=== PATIENT | male | born 1995 ===

== ENCOUNTER 2022-10-05 13:56 | Emergency (ER) | payer SELFPAY ==
[~2022-10-05] VITALS: Ht 154.9 cm; Wt 65.3 kg
--- NOTE | 2022-10-05 14:03 | NUR ---
Placed in room 05 . Placed on extruder operator vertical, blood pressure machine and pulse oximeter. To gown for exam. Side rails up. Report given to Kaiden TONY
[2022-10-05 14:09] VITALS: BP_SYST 150
--- NOTE | 2022-10-05 14:10 | NUR ---
PT POSSIBLY HAD A PSEUDO-SEIZURE PER DR. DYER. NON-POST ICTAL. PT ABLE TO ANSWER QUESTION FULLY W/ RELATIVELY CLEAR SPEECH. ALTHOUGH SPEECH HAS BEEN SOMEWHAT SLURRED THROUGH SHORT ED COURSE. PT DENIES ELICIT SUBSTANCE USE AND OR ABUSE. PT NOTED TO HAVE MULTIPLE BAGS. DECLINES TO STATES IF HE IS HOMELESS AT THIS TIME. PT APPEARS DISHEVELED AND DIRTY. COMFORT MEASURES AND SUPPORTIVE CARE INITIATEDD. IV ESTABLISHED. PT REFUSING BLOOD DRAW. URINE OBTAINED AND SENT.
[2022-10-05] MEDS ORDERED: TOPIRAMATE 25 MG TABLET(TOPAMAX) PO ONE (14:15)
[2022-10-05] MEDS ORDERED: levETIRAcetam 500 MG TABLET PO ONE (14:15)
[2022-10-05] MEDS ORDERED: LORazepam 1 MG TABLET PO ONE (14:15)
--- NOTE | 2022-10-05 14:30 | NUR ---
PT STATES " YOU CAN'T KEEP ME...I'M LEAVING....I DON'T WANT TO BE HERE". INFORMED PT OF HIS RIGHT TO REFUSE MEDICAL CARE AT ANY TIME. INFORMED PT HE IS A PATIENT AND NOT A PRISONER. NOTED TO BE DEMONSTRATING PARANOID BEHAVIOR, BUT REMAINS OF RELATIVE SOUND MIND AND AWARENESS OF SURROUNDINGS. PT REFUSES TO SIGN AMA, ALLOWED REMOVAL OF IV HL. PT GRABBED HIS BELONGINGS AND WALKED OUT OF AMBULANCE DOOR.
[2022-10-05 14:50] LABS: BARBITURATE, URINE NEGATIVE (NEG <=200); BENZODIAZEPINE, URINE NEGATIVE (NEG <=150); CANNABINOID, URINE NEGATIVE (NEG <=50); COCAINE, URINE NEGATIVE (NEG <=150); METHAMPHETAMINES SCREEN,URINE POSITIVE (NEG <=500); OPIATE, URINE NEGATIVE (NEG <=100); PHENCYCLIDINE SCREEN,URINE NEGATIVE (NEG <=25); UR TRICYCLIC ANTIDEPRESSANTS NEGATIVE (NEG <=300); URINE AMPHETAMINE POSITIVE (NEG <=500); URINE METHADONE NEGATIVE (NEG <=200); URINE OXYCODONE SCREEN NEGATIVE (NEG <=100); URINE PROPOXYPHENE SCREEN NEGATIVE (NEG <=300)
== END 2022-10-05 14:30 | disposition left against medical advice (07) ==
LOC: SED 13:56
DX: R56.9 Unspecified convulsions (principal); Z91.018 Allergy to other foods; Z88.8 Allergy status to other drugs, medicaments and biological substances; Z79.899 Other long term (current) drug therapy
CPT/HCPCS: 80307; 99283